=== PATIENT | male | born 1955 | race Caucasian/White ===

== ENCOUNTER 2019-09-15 11:13 | Emergency (ER) | payer OTHER ==
[~2019-09-15] VITALS: Ht 185.4 cm; Wt 96.8 kg
[~2019-09-15 11:13] MED LIST: ADV100 IH; BIMA2.5OS OD; BISO5TAB13 PO; BRINOS OD; CLON2TAB11 PO; DARI15TA PO; DEXL60CA3 PO; DULO60CA44 PO; ENAL5TAB PO; ESCI10TA PO; FENO145T PO; FEXO180T PO; FOLI1TAB15 PO; GABA-1216 PO; INSLAN SQ; ISOS60TA4 PO; LUBI24CA2 PO; METO-296 PO; MIRT-89 PO; OLAN2.5T3 PO; PHENY100 PO; RISP1 PO; SUCR1TAB PO; TAMS-13 PO; VICOT PO; WARF-57 PO; ZOLP-280 PO; [UNRECOGNIZED DRUG - CODE] NASAL
[2019-09-15 12:13] LABS: GLUCOMETER DEV NAME(LOC) AHU.; GLUCOSE,POINT OF CARE 138 MG/DL (70-110)
[2019-09-15 12:37] LABS: BASOPHILS % (AUTO) 0.6 % (0.0-2.0); EOSINOPHILS % (AUTO) 2.7 % (1.0-6.0); HEMATOCRIT 40.9 % (41-53); HEMOGLOBIN 13.6 g/dL (13.5-17.5); LYMPHOCYTES # (AUTO) 1.1 K/uL (1.0-4.8); LYMPHOCYTES % (AUTO) 26.7 % (22.0-44.0); MEAN CORPUSCULAR HEMOGLOBIN 29.4 pg (26.0-34.0); MEAN CORPUSCULAR HGB CONC 33.2 G/dL (31.0-37.0); MEAN CORPUSCULAR VOLUME 88 fL (80-100); MONOCYTES # (AUTO) 0.5 K/uL (0.1-1.0); MONOCYTES % (AUTO) 11.9 % (2.0-9.0); NEUTROPHILS # (AUTO) 2.5 K/uL (1.8-7.7); NEUTROPHILS % (AUTO) 58.1 % (40.0-70.0); PLATELET COUNT (AUTO) 118 K/uL (150-450); RED BLOOD CELL COUNT(AUTO) 4.63 MIL/uL (4.50-5.90); RED CELL DISTRIBUTION WIDTH 13.5 % (11.5-14.5)
[2019-09-15 12:48] LABS: ANION GAP 8 mmol/L (8-16); CALCIUM, TOTAL 8.6 mg/dL (8.8-10.5); CARBON DIOXIDE 27 mmol/L (22-29); CHLORIDE 105 mmol/L (98-107); CREATININE 1.14 mg/dL (0.60-1.30); GLOMERULAR FILTR. RATE CALC > 60 mL/min (>60); GLUCOSE,RANDOM 116 mg/dL (70-110); POTASSIUM 4.2 mmol/L (3.5-5.1); SODIUM SERUM 140 mmol/L (136-145); UREA NITROGEN, BLOOD 17 mg/dL (7-18)
[2019-09-15 12:51] LABS: PROTHROMBIN TIME 10.3 SEC (9.4-11.6)
[2019-09-15 13:12] LABS: ALANINE AMINOTRANSFERASE 25 U/L (12-78); ALBUMIN 3.5 g/dL (3.4-5.0); ALKALINE PHOSPHATASE 86 U/L (46-116); ASPARTATE AMINOTRANSFERASE 16 U/L (15-37); BILIRUBIN,TOTAL 0.8 mg/dL (0.1-1.0); CREATINE KINASE, TOTAL ONLY 79 U/L (39-308); TOTAL PROTEIN, SERUM 6.6 g/dL (6.4-8.2)
[2019-09-15 13:57] LABS: INFLUENZA TYPE A NEGATIVE FOR TYPE A (NEGATIVE); INFLUENZA TYPE B NEGATIVE FOR TYPE B (NEGATIVE)
[2019-09-15 13:58] LABS: RAPID GROUP A STREP NEGATIVE (NEGATIVE)
[2019-09-15 14:08] LABS: B-TYPE NATRIURETIC PEPTIDE 18 pg/mL (0-100)
[2019-09-15 14:42] VITALS: BP 129/76
== END 2019-09-15 14:46 | disposition home or self-care (01) ==
LOC: EMS 11:15
DX: J06.9 Acute upper respiratory infection, unspecified (principal); R42 Dizziness and giddiness; J45.909 Unspecified asthma, uncomplicated; F32.9 Major depressive disorder, single episode, unspecified; E11.9 Type 2 diabetes mellitus without complications; E78.00 Pure hypercholesterolemia, unspecified; I10 Essential (primary) hypertension; Z03.818 Encounter for observation for suspected exposure to other biological agents ruled out; Z79.4 Long term (current) use of insulin
CPT/HCPCS: 87430; 87635; 87804; 93005

== ENCOUNTER 2020-01-09 14:11 | Emergency (ER) | payer OTHER ==
[~2020-01-09] VITALS: Ht 182.9 cm; Wt 125.0 kg
[~2020-01-09 14:11] MED LIST changes: +DULO-8 PO; -DULO60CA44 PO; +ESCI-8 PO; -ESCI10TA PO; -RISP1 PO; +RISP1TAB27 PO
[2020-01-09 15:50] LABS: BASOPHILS % (AUTO) 0.4 % (0.0-2.0); EOSINOPHILS % (AUTO) 3.3 % (1.0-6.0); HEMATOCRIT 39.6 % (41-53); HEMOGLOBIN 13.1 g/dL (13.5-17.5); LYMPHOCYTES # (AUTO) 1.3 K/uL (1.0-4.8); LYMPHOCYTES % (AUTO) 22.1 % (22.0-44.0); MEAN CORPUSCULAR HEMOGLOBIN 29.5 pg (26.0-34.0); MEAN CORPUSCULAR VOLUME 89 fL (80-100); MONOCYTES # (AUTO) 0.5 K/uL (0.1-1.0); MONOCYTES % (AUTO) 8.2 % (2.0-9.0); PLATELET COUNT (AUTO) 109 K/uL (150-450); RED BLOOD CELL COUNT(AUTO) 4.43 MIL/uL (4.50-5.90); RED CELL DISTRIBUTION WIDTH 13.3 % (11.5-14.5)
[2020-01-09 16:10] LABS: ANION GAP 9 mmol/L (8-16); CALCIUM, TOTAL 8.8 mg/dL (8.8-10.5); CARBON DIOXIDE 27 mmol/L (22-29); CHLORIDE 105 mmol/L (98-107); CREATININE 1.16 mg/dL (0.60-1.30); GLOMERULAR FILTR. RATE CALC > 60 mL/min (>60); GLUCOSE,RANDOM 85 mg/dL (70-110); POTASSIUM 4.2 mmol/L (3.5-5.1); SODIUM SERUM 141 mmol/L (136-145); UREA NITROGEN, BLOOD 21 mg/dL (7-18)
[2020-01-09 16:19] LABS: ALANINE AMINOTRANSFERASE 30 U/L (12-78); ALBUMIN 3.6 g/dL (3.4-5.0); ALKALINE PHOSPHATASE 68 U/L (46-116); ASPARTATE AMINOTRANSFERASE 17 U/L (15-37); BILIRUBIN,TOTAL 0.6 mg/dL (0.1-1.0); TOTAL PROTEIN, SERUM 6.6 g/dL (6.4-8.2)
[2020-01-09 18:43] VITALS: BP 135/77
== END 2020-01-09 18:49 | disposition home or self-care (01) ==
LOC: EMS 14:18
DX: R42 Dizziness and giddiness (principal); J45.909 Unspecified asthma, uncomplicated; F32.9 Major depressive disorder, single episode, unspecified; E11.9 Type 2 diabetes mellitus without complications; E78.00 Pure hypercholesterolemia, unspecified; I10 Essential (primary) hypertension; Z20.828 Contact with and (suspected) exposure to other viral communicable diseases; Z79.4 Long term (current) use of insulin; Z79.02 Long term (current) use of antithrombotics/antiplatelets
CPT/HCPCS: 70450; 87426; 93005; 36415-L1; 36415-TC; 71045-TC

== ENCOUNTER 2020-12-11 15:00 | Emergency (ER) | payer OTHER ==
[~2020-12-11] VITALS: Ht 182.9 cm; Wt 100.0 kg
[~2020-12-11 15:00] MED LIST changes: -ADV100 IH; +ENAL-87 PO; -ENAL5TAB PO; +FLUT1DIS4 IH; -ISOS60TA4 PO; +ISOS60TA58 PO; -RISP1TAB27 PO; +RISP1TAB48 PO
[2020-12-11] MEDS ORDERED: LIDOCAINE 5% TRANSDERMAL PATCH TD ONE (18:30)
[2020-12-11] MEDS ORDERED: KETOROLAC TROMETHAMINE 30 MG/ML VIAL IM ONE (18:30)
[2020-12-11 20:30] VITALS: BP 128/79
== END 2020-12-11 21:00 | disposition home or self-care (01) ==
LOC: EMS 15:02
DX: M54.41 Lumbago with sciatica, right side (principal); J45.909 Unspecified asthma, uncomplicated; F32.9 Major depressive disorder, single episode, unspecified; E11.9 Type 2 diabetes mellitus without complications; E78.00 Pure hypercholesterolemia, unspecified; I10 Essential (primary) hypertension; Z79.4 Long term (current) use of insulin
CPT/HCPCS: 72131; 96372; 99284; J1885